=== PATIENT | female | born 1980 | race Caucasian/White ===

== ENCOUNTER 2017-12-01 12:08 | Emergency (ER) | payer BC ==
[~2017-12-01 12:08] MED LIST: CATAFLAM50 MG PO; LEVAQUIN750 MG PO; MEDROL DOSEPAK4 MG PO; NKHM
[2017-12-01] MEDS ORDERED: DOXYCYCLINE100 M3 PO ×2 (12:50→12:53)
[2017-12-01] MEDS ORDERED: DIFLUCAN150 MG PO (13:05)
== END 2017-12-01 13:24 | disposition home or self-care (01) ==
LOC: ED 12:08
DX: S50.862A Insect bite (nonvenomous) of left forearm, initial encounter (principal); Z98.890 Other specified postprocedural states; Z79.899 Other long term (current) drug therapy; Z91.013 Allergy to seafood; Z88.5 Allergy status to narcotic agent; Z88.6 Allergy status to analgesic agent; W57.XXXA Bitten or stung by nonvenomous insect and other nonvenomous arthropods, initial encounter; Y93.89 Activity, other specified; Y92.89 Other specified places as the place of occurrence of the external cause; Y99.9 Unspecified external cause status

== ENCOUNTER 2023-11-24 17:18 | Emergency (ER) | payer BC, OTHER ==
[~2023-11-24] VITALS: Ht 167.6 cm; Wt 90.7 kg
[~2023-11-24 17:18] MED LIST changes: +DIFLUCAN150 MG PO; +DOXYCYCLINE100 M3 PO
[2023-11-24] MEDS ORDERED: Metoclopramide Hydrochloride 10 MG/2 ML AMP IV ONE (18:35)
[2023-11-24] MEDS ORDERED: diphenhydrAMINE hydrochloride 50 MG/ML VIAL IV ONE (18:35)
[2023-11-24] MEDS ORDERED: SODIUM CHLORIDE 0.9% 1,000 ML IV ONE (18:35)
[2023-11-24] MEDS ORDERED: Ketorolac Tromethamine 15 MG/ML VIAL IV ONE (18:35)
[2023-11-24] MEDS ORDERED: REGLAN10 M1 PO (18:44)
[2023-11-24] MEDS ORDERED: IBU800 M2 PO (18:44)
[2023-11-24 18:47] LABS: BASO # 0.1 10*3/uL (0.0-0.1); BASO % 0.6 % (0.0-1.0); EOS # 0.4 10*3/uL (0.0-0.4); EOS % 5.1 % (1.0-4.0); HEMATOCRIT 40.6 % (37.0-47.0); LYMPH # 2.8 10*3/uL (1.3-4.4); LYMPH % 32.8 % (27.0-41.0); MEAN CORPUSCULAR HGB 29.4 pg (27.0-31.0); MEAN PLATELET VOLUME 9.6 fl (9.6-12.3); MONO # 0.5 10*3/uL (0.1-1.0); MONO % 5.9 % (3.0-9.0); NEUT # 4.7 10*3/uL (2.3-7.9); NEUT % 55.4 % (47.0-73.0); PLATELET COUNT AUTOMATED 305 10*3/uL (130-400); RED BLOOD COUNT 4.56 10*6/uL (4.10-5.10); RED CELL DISTRI WIDTH 12.3 % (0-14.5); WHITE BLOOD COUNT 8.5 10*3/uL (4.8-10.8)
[2023-11-24 19:40] LABS: BUN 10 mg/dl (9-23); CHLORIDE 107 mmol/L (98-107); POTASSIUM 4.1 mmol/L (3.4-5.1)
== END 2023-11-24 20:57 | disposition home or self-care (01) ==
LOC: ED 17:18
PROVIDERS: Emergency Medicine
DX: R51.9 Headache, unspecified (principal); Z91.013 Allergy to seafood; Z88.6 Allergy status to analgesic agent; Z88.8 Allergy status to other drugs, medicaments and biological substances; Z98.890 Other specified postprocedural states

== ENCOUNTER 2024-08-23 06:52 | Emergency (ER) | payer BC, OTHER ==
[~2024-08-23] VITALS: Ht 167.6 cm; Wt 95.3 kg
[~2024-08-23 06:52] MED LIST changes: +IBU800 M2 PO; +REGLAN10 M1 PO
[2024-08-23] MEDS ORDERED: METHOCARBAMOL500 M1 PO (08:02)
[2024-08-23] MEDS ORDERED: Ketorolac Tromethamine 30 MG/ML VIAL IM ONE (08:15)
== END 2024-08-23 08:15 | disposition home or self-care (01) ==
LOC: ED 06:52
DX: M62.830 Muscle spasm of back (principal); Z91.040 Latex allergy status; Z91.013 Allergy to seafood; Z88.6 Allergy status to analgesic agent; Z79.899 Other long term (current) drug therapy